=== PATIENT | male | born 1965 | race Caucasian/White ===

== ENCOUNTER 2021-02-08 17:54 | Emergency (ER) | payer OTHER, SELFPAY ==
--- NOTE | 2021-02-08 17:58 | ED.SKABFB ---
HPI - Skin/Abscess/Foreign Bdy General Chief complaint: Wound/Laceration Stated complaint: Splinter in right foot Time Seen by Provider: 02/08/21 17:58 Source: patient and RN notes reviewed History of Present Illness HPI narrative: Patient is a 55-year-old male who presents the urgent care with complaints of a splinter to the bottom of the right foot. Patient states is been there for approximately 2 weeks and he has attempted to remove it without any luck. Patient states that there is some swelling to the area and more increased pain with ambulation. Denies of any fevers. No other acute complaints. No acute distress noted. Patient aware of the plan of care. Some parts of this dictation were generated by voice recognition software and may contain typographical and/or grammatical inaccuracies. Related Data Home Medications Medication Instructions Recorded Confirmed No Home Medications 02/08/21 02/08/21 Allergies Allergy/AdvReac Type Severity Reaction Status Date / Time No Known Allergies Allergy Unverified 07/18/16 21:30 Review of Systems Review of Systems: CONSTITUTIONAL: Denies fever, chills, or sweats. EYES: Denies visual changes, redness, or discharge. ENT: Denies rhinorrhea, congestion, sore throat, or otalgia. CARDIOVASCULAR: Denies chest pain, palpitations, or edema. RESPIRATORY: Denies cough or dyspnea. GASTROINTESTINAL: Denies abdominal pain, nausea, vomiting, or diarrhea. GENITOURINARY: Denies dysuria or hematuria. SKIN: Reports of a splinter to the bottom of the right foot MUSCULOSKELETAL: Denies back pain, joint pain, or myalgia. NEUROLOGIC: Denies headache, numbness, or weakness. All other systems reviewed are negative, except as documented in HPI. PMFSH Comments GENERAL: This is a well-nourished, well-developed patient, in no apparent distress. HEAD: normocephalic, atraumatic. EYES: PERRL. Sclera clear/white. Vision is grossly intact. EARS: External ears normal, auditory canals clear and without drainage, TMs normal without perforation. Hearing grossly intact. NOSE: External nose normal with no obvious nasal discharge, nares without redness, no rhinorrhea. THROAT: Mucous membranes moist, posterior pharynx clear. NECK: Neck supple, non-tender without lymphadenopathy, masses or thyromegaly. CARDIOVASCULAR: Regular rate and rhythm without murmurs, gallops, or rubs. RESPIRATORY: Clear to auscultation. Breath sounds equal bilaterally. No wheezes, rales, or rhonchi. GASTROINTESTINAL: Abdomen soft, non-tender, nondistended. Bowel sounds are active. No hepato-splenomegaly, or palpable masses. No guarding. SKIN: warm, intact with no suspicious lesions or rash, good texture and turgor. NEURO: awake, alert, and oriented to person, place and time. There were no obvious focal neurologic abnormalities. EXTREMITIES: No clubbing, cyanosis, or edema. No joint tenderness, effusion, or edema noted. No calf tenderness. Negative Homans sign bilaterally. BACK: Nontender without deformity or crepitance. No flank tenderness. Exam Narrative: GENERAL: This is a well-nourished, well-developed patient, in no apparent distress. HEAD: normocephalic, atraumatic. EYES: PERRL. Sclera clear/white. Vision is grossly intact. EARS: External ears normal NOSE: External nose normal with no obvious nasal discharge, nares without redness, no rhinorrhea. THROAT: Mucous membranes moist NECK: Neck supple CARDIOVASCULAR: Regular rate and rhythm without murmurs, gallops, or rubs. RESPIRATORY: Clear to auscultation. Breath sounds equal bilaterally. No wheezes, rales, or rhonchi. SKIN: Notable splinter embedded to the pad of the right foot with mild surrounding edema without erythema NEURO: awake, alert, and oriented to person, place and time. There were no obvious focal neurologic abnormalities. EXTREMITIES: No clubbing, cyanosis, or edema. Course Vital Signs Vital signs: Vital Signs Temperature 98.6 F 02/08/ 18:05 Pulse Rate 86 02/08
[2021-02-08 18:05] VITALS: BP 116/88; PULSE 86; RESP 16; TEMP 37; O2SAT 97
[2021-02-08 18:12] VITALS: BP 116/88; PULSE 86; RESP 16; TEMP 37; O2SAT 97
== END 2021-02-08 18:26 | disposition home or self-care (01) ==
PROVIDERS: Emergency Provider Nurse Practitioner Family
DX: S91.341A Puncture wound with foreign body, right foot, initial encounter (principal); X58.XXXA Exposure to other specified factors, initial encounter
CPT/HCPCS: 28190; 99213; G0463

== ENCOUNTER 2022-08-08 14:02 | Emergency (ER) | payer BC, SELFPAY ==
--- NOTE | ~2022-08-08 | XR_ITS ---
[[id number] ] INDICATION: Right rib pain TECHNIQUE: Frontal projection of the upper right ribs, frontal projection of the lower right ribs, ob lique projection of all the right ribs, frontal inspiratory chest x-ray for interpretation. FINDINGS: There are no displaced rib fractures identified. There are no soft tissue abnormality see n. The lungs are clear. IMPRESSION: 1:No acute displaced rib fractures. Reviewed, dictated and finalized at location A. ET NETWORK ANALYST
[2022-08-08 14:08] VITALS: BP 146/94; PULSE 68; RESP 16; TEMP 36.4; O2SAT 98
[2022-08-08] MEDS: IBUPROFEN 600 MG TABLET PO (15:21)
--- NOTE | 2022-08-08 15:28 | ED.GENADULT ---
HPI - General Adult General Chief complaint: Unspecified Stated complaint: I think I broke my ribs Time Seen by Provider: 08/08/22 14:30 Source: RN notes reviewed History of Present Illness HPI narrative: Patient presents emergency department from home for right-sided rib pain. Patient states that approximately 2 days ago he began to notice soreness on his right lateral ribs states that there was a point area that was tender to palpation and was worse when he sneezed or laughed he states he has no pain at rest and only notes that with these 2 activities he denies any direct trauma or injury states he did notice that after sneezing he denies any fevers or chills chest pain shortness of breath or any other symptoms has not taken anything for the pain today Related Data Allergies Allergy/AdvReac Type Severity Reaction Status Date / Time No Known Allergies Allergy Unverified 07/18/16 21:30 Review of Systems Review of Systems: Gen.: Denies fevers or chills ENT: Denies congestion Respiratory: Denies shortness of breath or cough CV: Denies chest pain or palpitations GI: Denies abdominal pain nausea, emesis or diarrhea Musculoskeletal see HPI Neuro: Denies numbness, tingling, weakness or focal weakness Skin: Denies rash Except as documented, all other systems reviewed and negative [facility] Past Medical History Medical History (Updated 08/08/22 @ 15:31 by Davis Guan DO) Patient denies significant medical history Social History Social History (Updated 08/08/22 @ 15:30 by Davis Guan DO) Smoking status: Never smoker Exam Narrative: APPEARANCE: No acute distress, nontoxic, resting in bed EYES: EOMI HEENT: Normocephalic, atraumatic, OMM RESPIRATORY: No respiratory distress Clear to auscultation bilaterally with no rhonchi wheezing or rales. CARDIOVASCULAR: Regular rate and rhythm without murmurs rubs or gallops. Chest: Point tenderness over the right lateral ribs in the region of rib 7 and 8 at the mid axillary line there is no overlying ecchymosis or swelling pain with deep inspiration no pain at rest no overlying rash ABDOMINAL: Soft, nontender, nondistended, no rebound or guarding no tenderness in right upper quadrant MUSCULOSKELETAl: Moves all extremities. No clubbing, cyanosis or edema. NEURO: Awake and alert. Following commands, speech normal, no focal deficits SKIN:: Warm, dry. No rashes lesions or abrasions PSYCHIATRIC: Normal affect/mood, Course Course Emergency Course: Discussed with patient results of workup and diagnosis. Discussed need for follow-up with primary care, proper use of medication, and reasons to return to the emergency department. Patient understands and agrees to current treatment plan Vital Signs Vital signs: Vital Signs Temperature 97.6 F 08/08/22 14:08 Pulse Rate 68 08/08/22 14:08 Respiratory Rate 16 08/08/22 14:08 Blood Pressure 146/94 H 08/08/22 14:08 Pulse Oximetry 98 08/08/22 14:08 Oxygen Delivery Room Air 08/08/22 14:08 Temperature 97.6 F 08/08/22 14:08 Pulse Rate 68 08/08/22 14:08 Respiratory Rate 16 08/08/22 14:08 Blood Pressure 146/94 H 08/08/22 14:08 Pulse Oximetry 98 08/08/22 14:08 Oxygen Delivery Room Air 08/08/22 14:08 Medical Decision Making [facility] Narrative Medical decision making narrative: Patient with point tenderness over the right lateral ribs with no swelling ecchymosis no overlying rash to appear to be zoster patient's pain only occurs with deep inspiration and coughing there is no shortness of breath there is no chest pain feel this most likely musculoskeletal will treat with anti-inflammatories and follow-up as an outpatient Vital Signs Vital Signs: Vital Signs Temperature 97.6 F 08/08/22 14:08 Pulse Rate 68 08/08/22 14:08 Respiratory Rate 16 08/08/22 14:08 Blood Pressure 146/94 H 08/08/22 14:08 Pulse Oximetry 98 08/08/22 14:08 Oxygen Delivery Room Air 08/08/22 14:08 Temperature 97
[2022-08-08 15:48] VITALS: BP 148/92; PULSE 74; RESP 18; O2SAT 98
== END 2022-08-08 15:49 | disposition home or self-care (01) ==
PROVIDERS: Emergency Provider Emergency Medicine
DX: R07.89 Other chest pain (principal)
CPT/HCPCS: 71101; 99283; A9270

== ENCOUNTER 2023-04-07 18:26 | Emergency (ER) | payer BC, SELFPAY ==
[2023-04-07 18:47] VITALS: BP 129/100; PULSE 77; RESP 15; TEMP 36.3; O2SAT 98
--- NOTE | 2023-04-07 18:50 | ECG_ITS ---
Measurements Intervals [place] Rate: 67 P: 29 NE: 154 QRS: 22 QRSD: 97 T: 29 QT: 378 QTc: 401 Interpretive Statements SINUS RHYTHM NORMAL ECG NO PREVIOUS ECG AVAILABLE FOR COMPARISON Electronically Signed On 04-07-2023 19:02:01 CDT by Billy Hartley D.O.
--- NOTE | 2023-04-07 20:01 | PC.NURSE ---
patient states he feels better and will follow up with PMD
== END 2023-04-07 20:01 | disposition left against medical advice (07) ==
LOC: ANHED 20:03
PROVIDERS: Emergency Provider Emergency Medicine
DX: R42 Dizziness and giddiness (principal)
CPT/HCPCS: 93005; 99199

== ENCOUNTER 2023-07-29 14:47 | Emergency (ER) | payer BC, SELFPAY ==
[2023-07-29] VITALS (19 sets, daily range): BP systolic 114–166; BP diastolic 78–107; PULSE 58–86; RESP 13–24; TEMP 36.3; O2SAT 96–100
--- NOTE | ~2023-07-29 | CT_ITS ---
EXAMINATION: CT brain wo con DATE: 07/29/2023 17:49 INDICATION: Lightheadedness. TECHNIQUE: Computed tomography (CT) of the head was performed without intravenous contrast. The mA wa s adjusted according to patient size. Iterative reconstruction technique was employed. The dose-lengt h product was 756.67 mGy-cm. COMPARISON: None FINDINGS: There is no intracranial hemorrhage, acute infarction, or abnormal intracranial mass lesion . The ventricles are normal in size. The orbits are normal. There is mild mucosal thickening in the e thmoid sinuses. The mastoid air cells are normal. IMPRESSION: 1. Normal brain. Reviewed, dictated and finalized at location E. ISSARY HELPER IMPRESSION: 1. Normal brain.
--- NOTE | ~2023-07-29 | XR_ITS ---
EXAMINATION: XR chest 1V DATE: 07/29/2023 16:19 INDICATION: Lightheadedness. Dizziness. TECHNIQUE: A single frontal view of the chest was obtained. COMPARISON: Chest 2 views 05/10/13 FINDINGS: There is mild atelectasis in the lower lung zones. No pleural effusion or pneumothorax. The heart size is normal. IMPRESSION: 1. Mild atelectasis in the lower lung zones. Reviewed, dictated and finalized at location E. R MANAGER
--- NOTE | 2023-07-29 14:54 | ECG_ITS ---
Measurements Intervals [place] Rate: 79 P: 27 NH: 132 QRS: 22 QRSD: 97 T: 31 QT: 363 QTc: 416 Interpretive Statements SINUS RHYTHM NORMAL ECG COMPARED TO ECG 04/07/2023 18:59:39 NO SIGNIFICANT CHANGES Electronically Signed On 07-29-2023 15:01:39 UNIX SYSTEMS ADMINISTRATOR by Billy Hartley D.O.
--- NOTE | 2023-07-29 15:55 | ED.GENADULT ---
HPI - General Adult General Chief complaint: Syncope <JORDANA Montague Last Filed: 07/29/23 15:57> Stated complaint: lightheaded <JORDANA Montague Last Filed: 07/29/23 15:57> Time Seen by Provider: 07/29/23 15:53 <Julian Gates PA-C - Last Filed: 07/29/23 15:57> Focused HPI: This is a 57-year-old male with PMH of HLD who presents to the ED with chief complaint of lightheadedness beginning today while cleaning in the bedroom. Reports he started to feel lightheaded and did not seem to go away so he came to the hospital. Denies any preceding or associated chest pain, shortness of breath. Denies vertigo, numbness, weakness, falls. Denies GI bleeding symptoms. GENERAL: Well-appearing, well-nourished, and in no acute distress. HEAD: Normocephalic, atraumatic. CHEST: Clear to auscultation. No respiratory distress. HEART: Regular rate and rhythm. NEURO: Alert and oriented x3. Patient screened in triage and initial orders placed. Additional care and disposition to be based upon diagnostic testing and treatment. <JORDANA Montague Last Filed: 07/29/23 15:57> Source: patient <JORDANA Guardado Last Filed: 07/29/23 19:02> Mode of arrival: ambulatory <JORDANA Guardado Last Filed: 07/29/23 19:02> Limitations: no limitations <JORDANA Guardado Last Filed: 07/29/23 19:02> History of Present Illness HPI narrative: States dizziness was worse with bending over. Denies syncope. States he has otherwise felt fine the last few days. Does admit to hx of anxiety and states the sx's today made him feel very anxious. Denies further lightheadedness upon my evaluation. Denies vision changes, headache, focal weakness or numbness. <JORDANA Guardado Last Filed: 07/29/23 19:02> Related Data Allergies/adverse reactions: Allergies Allergy/AdvReac Type Severity Reaction Status Date / Time No Known Allergies Allergy Verified 07/29/23 14:53 <Julian Gates PA-C - Last Filed: 07/29/23 15:57> Review of Systems Review of Systems: CONSTITUTIONAL: Denies fever, chills, or sweats. ENT: Denies vision changes, rhinorrhea, congestion, sore throat. CARDIOVASCULAR: Denies chest pain, palpitations, or edema. RESPIRATORY: Denies cough or dyspnea. GASTROINTESTINAL: Denies abdominal pain, nausea, vomiting. NEUROLOGIC: See HPI. <Ashtyn Dan PA-C - Last Filed: 07/29/23 19:02> All systems reviewed & are unremarkable except as noted in HPI and below <Ashtyn Dan PA-C - Last Filed: 07/29/23 19:02> [facility] Past Medical History Medical History: Medical History Patient denies significant medical history <Julian Gates PA-C - Last Filed: 07/29/23 15:57> Social History Social History: Social History Smoking status: Never smoker <Julian Gates PA-C - Last Filed: 07/29/23 15:57> Exam Narrative: GENERAL: Well appearing, obese with BMI of 34.7, non-toxic, in no acute distress. HEAD: Normocephalic, atraumatic. EENT: PERRL/EOMI, conjunctiva clear. TMs clear bilaterally, no cerumen impaction. RESPIRATORY: Airway patent, respirations nonlabored. Clear to auscultation bilaterally, no rales, rhonchi, wheezing. CARDIOVASCULAR: Regular rate and rhythm without murmurs, rubs, or gallops. MUSCULOSKELETAL: Moves all extremities. No gross deformities. SKIN: Warm, dry, normal color. NEURO: A&O X3. Speech clear. Cranial nerves II-XII grossly intact. Steady gait. No ataxic movements. Strength 5/5 in upper and lower extremities bilaterally. No pronator drift. No focal deficits. PSYCHIATRIC: Mildly anxious. Normal interaction. <Ashtyn Dan PA-C - Last Filed: 07/29/23 19:02> Course Vital Signs Vital signs: Vital Signs Temperature 97.4 F L 07/29/23 14:51 Pulse Rate 86 07/29/23 14
[2023-07-29 16:03] LABS: Basophils Absolute Auto 0.1 K/mm3 (0.0-0.1); Basophils Percent Auto 0.6 % (0.2-1.2); Eosinophils Absolute Auto 0.1 K/mm3 (0-0.3); Eosinophils Percent Auto 1.4 % (0-4.4); Hemoglobin 15.6 g/dL (14.0-18.0); Immature Granulocyte Absolute 0.02 K/mm3 (0.00-0.031); Immature Granulocyte Percent A 0.2 % (0-0.5); Lymphocytes Absolute Auto 1.45 K/mm3 (0.9-3.2); Lymphocytes Percent Auto 17.8 % (18.3-44.2); Mean Corpuscular HGB Conc 33.2 g/dl (32-36); Mean Corpuscular Volume 90.4 fl (80-100); Mean Platelet Volume 9.3 fl (7.4-10.4); Monocytes Absolute Auto 0.5 K/mm3 (0.1-0.6); Monocytes Percent Auto 5.9 % (2.6-8.5); Neutrophils Percent Auto 74.1 % (45.5-73.1); Platelet Count Result 211 k/mm3 (150-375); Red Cell Distribution Width 12.8 % (11.5-14.5); White Blood Count 8.1 K/mm3 (4.5-10.0)
[2023-07-29 16:45] LABS: Appearance Urine Clear (Clear); Bilirubin Urine Negative (Negative); Blood Urine Negative (Negative); Color Urine Yellow (Yellow); Glucose Urine UA Negative (Negative); Ketones Urine Negative (Negative); Leukocyte Esterase Ur Negative LEU/UL (Negative); Nitrate Urine Negative (Negative); Protein Urine Negative (Negative); Specific Grav Ur 1.009 (1.001-1.035); Urobilinogen Urine 0.2 mg/dL (<2.0)
[2023-07-29 16:50] LABS: Add Urine Microscopic? NO
[2023-07-29 16:56] LABS: Alanine Aminotransferase 42 U/L (6-50); Albumin Level 4.3 g/dL (3.5-5.1); Alkaline Phosphatase 93 U/L (38-126); Anion Gap 6 mmol/L (8-16); Aspartate Amino Transferase 33 U/L (17-59); Bilirubin,Total 0.9 mg/dL (0.2-1.3); Blood Urea Nitrogen 15 mg/dL (9-20); Calcium 8.8 mg/dL (8.4-10.2); Carbon Dioxide 28 mmol/L (22-30); Chloride 102 mmol/L (98-107); Estimated CRCL calculation 106 ml/min; Estimated Glomerular Filt Rate > 60; Glucose 90 mg/dL (65-110); Potassium 4.1 mmol/L (3.4-5.0); Sodium 136 mmol/L (137-145)
[2023-07-29] MEDS: SODIUM CHLORIDE 0.9% IV 1,000 ML 999 ML IV CONT (17:42)
[2023-07-29 18:00] LABS: Troponin I < 0.012 ng/mL (0.000-0.034)
[2023-07-29] MEDS: MECLIZINE HCL 25 MG TABLET PO (18:14)
== END 2023-07-29 19:02 | disposition home or self-care (01) ==
PROVIDERS: Physician Assistant; Emergency Provider Physician Assistant
DX: I95.1 Orthostatic hypotension (principal); E78.5 Hyperlipidemia, unspecified
CPT/HCPCS: 36415; 70450; 71045; 80053; 81003; 84484; 85025; 93005; 96360; 99284; A9270; J7030

== ENCOUNTER 2023-11-02 22:11 | Emergency (ER) | payer BC, SELFPAY ==
[2023-11-02 22:29] VITALS: BP 131/78; PULSE 90; RESP 19; TEMP 36.6; O2SAT 97
--- NOTE | 2023-11-02 23:45 | ED.GENADULT ---
[facility] - General Adult General Chief complaint: Unspecified Stated complaint: trouble swallowing, dizzy, weakness Time Seen by Provider: 11/02/23 23:38 Source: patient Mode of arrival: ambulatory Limitations: no limitations History of Present Illness HPI narrative: This is a 58-year-old male who presents to the ED for medical screening exam. Patient states that around 2129 was eating raising canes for dinner which is nothing new for him. He reports that on the car ride home he started having some dysphagia which caused him to become very anxious. He states that he then started to have dizziness, lightheadedness and intermittent blurred vision. Reports generalized weakness and numbness throughout the extremities. 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 He decided to come to the ER to get checked out for this. Denies any current complaint. He does note that he has had panic attacks in the past and this feels similar. Denies chest pain, shortness of breath fevers, chills. He has secondary inquiry regarding a spot on his hand has been there for 18 months. Reports started as a scab that was picked and the red spot never really went away. Related Data Allergies Allergy/AdvReac Type Severity Reaction Status Date / Time No Known Allergies Allergy Verified 07/29/23 14:53 Review of Systems Review of Systems: All systems as dictated in [facility] Past Medical History Medical History Patient denies significant medical history Social History Social History Smoking status: Never smoker Exam Narrative: GENERAL: Well-appearing, well-nourished, and in no acute distress. HEAD: Normocephalic, atraumatic. EYES: PERRLA and EOMI. ENT: Nares clear, no rhinorrhea or epistaxis. Mucous membranes moist. Oropharynx without tonsillar hypertrophy exudate or other lesions. Airway intact. No drooling or trismus. Tolerating secretions. NECK: Supple. No adenopathy or masses. CHEST: No respiratory distress. Clear to auscultation. No wheezes rales or rhonchi. Speaking in full sentences. 97% room air. HEART: Regular rate and rhythm. No murmur heard. Normal peripheral pulses. ABDOMEN: Soft, nontender, nondistended, normal active bowel sounds. MSK: Normal range of motion. No edema. SKIN: Warm, dry, no rash. NEURO: Alert and oriented x4. No focal deficits. Cranial nerves 2-12 intact. 5/5 strength and sensation in the upper and lower extremities. no dysarthria. PSYCH: Anxious mood. Normal affect. Course Vital Signs Vital signs: Vital Signs Temperature 97.8 F 11/02/23 22:29 Pulse Rate 90 11/02/23 22:29 Respiratory Rate 19 11/02/23 22:29 Blood Pressure 131/78 11/02/23 22:29 Pulse Oximetry 97 11/02/23 22:29 Temperature 97.8 F 11/02/23 22:29 Pulse Rate 63 11/03/23 00:21 Respiratory Rate 16 11/03/23 00:21 Blood Pressure 129/87 11/03/23 00:21 Pulse Oximetry 97 11/03/23 00:21 Medical Decision Making MDM Narrative Medical decision making narrative: This is a 58-year-old male who presents to the ED with chief complaint of symptoms of anxiety. Vitals are normal. Exam is unremarkable. Patient thought he may be having anaphylactic reaction some dysphagia. He has no signs of anaphylaxis. No rash. Neurologically fully intact. Discussed the normal exam findings with the patient. He feels comfortable with going home at this point. Shared decision making to avoid any further workup here. Pt will be discharged in stable condition. Return precautions given and supportive measures discussed. Pt is understanding and agreeable with plan for discharge and follow-up with PCP. Vital Signs Vital Signs: Vital Signs Temperature 97.8 F 11/02/23 22:29 Pulse Ra
[2023-11-03 00:21] VITALS: BP 129/87; PULSE 63; RESP 16; O2SAT 97
== END 2023-11-03 00:22 | disposition home or self-care (01) ==
LOC: ANHED 23:58
PROVIDERS: Emergency Provider Physician Assistant
DX: F41.9 Anxiety disorder, unspecified (principal)
CPT/HCPCS: 99281

== ENCOUNTER 2024-03-24 03:30 | Emergency (ER) | payer BC, SELFPAY ==
[2024-03-24 03:34] VITALS: BP 133/91; PULSE 66; RESP 18; TEMP 36.8; O2SAT 96
--- NOTE | 2024-03-24 04:33 | PC.NURSE ---
Pt states I would like to check out Pt states he is feeling better and wants to go home. Pt left without being seen by provider at 0430.
== END 2024-03-24 04:30 | disposition left against medical advice (07) ==
DX: J30.2 Other seasonal allergic rhinitis (principal)
CPT/HCPCS: 99199